=== PATIENT | female | born 1985 | race Caucasian/White ===

== ENCOUNTER 2017-09-27 02:44 | Emergency (ER) | payer OTHER ==
[~2017-09-27] VITALS: Ht 160 cm; Wt 56.7 kg
[2017-09-27 03:27] LABS: URINE BILIRUBIN NEGATIVE (Negative); URINE BLOOD NEGATIVE (Negative); URINE CLARITY SL CLOUDY; URINE COLOR YELLOW; URINE GLUCOSE-RANDOM* NEGATIVE (Negative); URINE KETONES TRACE (Negative); URINE NITRITE-REFLEX NEGATIVE (Negative); URINE PROTEIN (DIPSTICK) 2+ (Negative); URINE SPECIFIC GRAVITY >= 1.030 (1.005-1.035); URINE UROBILINOGEN 0.2 E.U./dl (0.2-1.0)
[2017-09-27 03:41] LABS: URINE LEUKOCYTES-REFLEX TRACE (Negative)
[2017-09-27 03:42] LABS: BACTERIA-REFLEX 1-9 Few /HPF (None Seen); CASTS None Seen /LPF (None Seen); CRYSTALS None Seen /LPF (None Seen); MUCUS None Seen strn/LPF (None Seen); SQUAMOUS >10 Many /LPF (0-3); URINE RBC 0-2 Rare /HPF (0-2); URINE WBC-REFLEX 0-5 Rare /HPF (0-5)
[2017-09-27] MEDS ORDERED: IBUPROFEN 600600 M1 PO (04:02)
[2017-09-27] MEDS ORDERED: NORFLEX100 MG PO (04:02)
[2017-09-27] MEDS ORDERED: ULTRAM 50MG TAB50 MG PO (04:02)
== END 2017-09-27 04:16 | disposition home or self-care (01) ==
LOC: ER 02:44
PROVIDERS: Emergency Medicine
DX: S29.012A Strain of muscle and tendon of back wall of thorax, initial encounter (principal); V49.69XA Unspecified car occupant injured in collision with other motor vehicles in traffic accident, initial encounter; Y93.89 Activity, other specified; Y92.89 Other specified places as the place of occurrence of the external cause; Y99.8 Other external cause status

== ENCOUNTER 2018-01-24 22:04 | Emergency (ER) | payer OTHER ==
[~2018-01-24] VITALS: Ht 160 cm; Wt 56.7 kg
[~2018-01-24 22:04] MED LIST: IBUPROFEN 600600 M1 PO; NORFLEX100 MG PO; ULTRAM 50MG TAB50 MG PO
[2018-01-24 22:56] LABS: URINE BILIRUBIN NEGATIVE (Negative); URINE BLOOD NEGATIVE (Negative); URINE CLARITY CLEAR; URINE COLOR YELLOW; URINE GLUCOSE-RANDOM* NEGATIVE (Negative); URINE KETONES NEGATIVE (Negative); URINE LEUKOCYTES-REFLEX NEGATIVE (Negative); URINE NITRITE-REFLEX NEGATIVE (Negative); URINE PROTEIN (DIPSTICK) NEGATIVE (Negative); URINE SPECIFIC GRAVITY >= 1.030 (1.005-1.035); URINE UROBILINOGEN 0.2 E.U./dl (0.2-1.0)
[2018-01-24] MEDS ORDERED: NORCO 5-325 TA1 EACH PO (23:36)
[2018-01-24] MEDS ORDERED: CYCLOBENZAPRINE5 MG PO (23:36)
[2018-01-24] MEDS ORDERED: PREDNISONE 20 M20 MG PO (23:36)
[2018-01-24 23:48] VITALS: BP 111/76
== END 2018-01-24 23:51 | disposition home or self-care (01) ==
LOC: ER 22:04
PROVIDERS: Physician Assistant
DX: M54.9 Dorsalgia, unspecified (principal); M54.30 Sciatica, unspecified side; Z90.710 Acquired absence of both cervix and uterus; Z98.51 Tubal ligation status